=== PATIENT | female | born 1980 | race Caucasian/White ===

== ENCOUNTER 2018-06-01 20:26 | Emergency (ER) | payer OTHER ==
--- NOTE | 2018-06-01 20:35 | PDOC ---
History of Present Illness - History of Present Illness Initial Comments: This is a 38 year old female, with a significant past medical history of asthma (Ventolin and Symbicort Inhaler) who presents to the emergency department today complaining of exacerbated asthma symptoms for 1 week, and vomiting for 2 days. Patient reports having a progressively worsening cough and an itchy throat. She notes that coughing is exacerbated with deep breaths. Patient reports that the coughing was worst the past two days, causing her to vomit clear flem which prompted her visit to the ED. Patient notes associated eye-tearing and runny nose. Patient reports going to Urgent Care last week, where she had negative X- Rays and was negative for the flu, but was told she had a sinus infection. Patient confirms sick contacts at home. Patient has been on 40mg of amoxicillin for 1 week. The patient denies chest pain, shortness of breath, headache and dizziness. Denies fever, chills, diarrhea and constipation. Denies dysuria, frequency, urgency and hematuria. PAST MEDICAL HISTORY: Asthma PAST SURGICAL HISTORY: no significant history FAMILY HISTORY: no pertinent history SOCIAL HISTORY: Pt lives with family and is employed. MEDICATIONS: reviewed ALLERGIES: As per nursing notes ROS General: No fevers or chills, no weakness, no weight loss HEENT: +Itchy throat. +Eye watering. +Runny nose. No change in vision. No ear pain CardioVascular: No chest pain or shortness of breath Respiratory: +Cough. No wheezing. Gastrointestinal: +Nausea. +Vomit. No diarrhea or constipation, No rectal bleeding Genitourinary: No dysuria, hematuria, or frequency Musculoskeletal: No joint or muscle pain or swelling Neurologic: No headache, vertigo, dizziness or loss of consciousness Psychiatric: no depression Skin: No rashes or easy bruising Endocrine: no increased thirst or abnormal weight change Allergic: no skin or latex allergy All other systems reviewed and normal Exam: General: Well-nourished well-developed individual, no acute distress. Speaking in full sentences. HEENT: Throat: Normal, tonsils normal, no erythema or exudate Neck: Supple, no meningeal signs, no lymphadenopathy Eyes::Pupils equal reactive and round, extraocular motion intact Chest: Nontender to palpation Cardiac: S1-S2 normal, regular rate and rhythm, no murmurs rubs or gallops Respiratory: +Coarse breath sounds at bilateral bases. No obvious respiratory distress. Normal respiratory rate. Good air entry bilaterally. No wheezing. No rhonchi or rales. Extremities: Warm, dry, no cyanosis, clubbing, or edema Skin: No rashes Neuro: Alert and oriented x3, nonfocal exam, grossly intact, normal gait Psych: Normal mood and affect 06/01/18 21:04 <Cesilia Armenta - Last Filed: 06/01/18 21:09> - General History Source: Patient Exam Limitations: No Limitations - History of Present Illness Initial Comments: A portion of this note was documented by scribe services under my direction. I have reviewed the details of the note, within reason, and agree with the documentation with the following case summary and management plan written by me. Patient treated in the ED. Nursing notes are reviewed and incorporated into the medical decision-making. Vital signs reviewed. Assessment and plan: This is a 38-year-old female who comes in complaining of cough congestion and some posttussive emesis. Patient said she had a moderate amount of posttussive emesis that consisted totally of phlegm. Patient said since then she has actually felt better and had less coughing. Patient was at her primary care doctor and started on prednisone patient also takes a nebulizer for her asthma as well as Symbicort. Patient is also on antihistamines. Patient denies any chest pain, fever patient did have a chest x-ray approximately a week ago when she saw her primary care doctor and was told it was normal on my exam patient did have some coarse breath sounds so I did do a chest x-ray which was negative for any acute pathology Patient discharged home with a prescription for Tessalon Perles will follow up with her primary care doctor 06/01/18 21:12 <Stephen Fong I - Last Filed: 06/01/18 21:13> - General Chief Complaint: Asthma Stated Complaint: ASTHMA,COUGH Time Seen by Provider: 06/01/18 20:28 Past History <Cesilia Armenta - Last Filed: 06/01/18 21:09> - Past Medical History Asthma: Yes Diabetes: Yes (NO MEDS) Disorders: Yes (OVARIAN CYSTS, RETROGRADE UTERUS) - Suicide/Smoking/Psychosocial Hx Smoking History: Never smoked Hx Alcohol Use: No Substance Use Type: None <Stephen Fong I - Last Filed: 06/01/18 21:13> - Past Medical History Allergies/Adverse Reactions: Allergies Allergy/AdvReac Type Severity Reaction Status Date / Time morphine Allergy Severe Difficulty Verified 06/01/18 20:30 Breathing oxytocin [From Pitocin] Allergy Severe Swelling Verified 06/01/18 20:30 Home Medications: Ambulatory Orders Albuterol 0.083% Nebulizer Micheline [Ventolin 0.083%] 1 neb NEB QID 06/01/18 Benzonatate [Tessalon Pearls -] 200 mg PO TID #21 cap 06/01/18 Budesonide/Formeterol Fumarate [SYMBICORT 80/4.5mcg -] 1 inh PO BID 06/01/18 Fexofenadine HCl [Payal Allergy] 180 mg PO DAILY 06/01/18 Fluticasone Prop 0.05% Nasal [Flonase -] 1 - 2 spray NS DAILY 06/01/18 Montelukast Sodium [Singulair] 20 mg PO DAILY 06/01/18 Prednisone [Deltasone] 40 mg PO DAILY 06/01/18 *Physical Exam - Vital Signs Last Vital Signs Temp Pulse Resp BP Pulse Ox 98 F 106 H 20 138/95 100 06/01/18 20:33 06/01/18 20:33 06/01/18 20:33 06/01/18 20:33 06/01/18 20:33 <Cesilia Armenta - Last Filed: 06/01/18 21:09> Moderate Sedation - Procedure Monitoring Vital Signs: Procedure Monitoring Vital Signs Temperature 98 F 06/01/18 20:33 Pulse Rate 106 H 06/01/18 20:33 Respiratory Rate 20 06/01/18 20:33 Blood Pressure 138/95 06/01/18 20:33 O2 Sat by Pulse Oximetry (%) 100 06/01/18 20:33 <Cesilia Armenta - Last Filed: 06/01/18 21:09> *DC/Admit/Observation/Transfer - Attestations Scribe Attestion: 06/01/18 21:09 Documentation prepared by ANASTACIA Serna, acting as medical pathologist for Stephen Fong MD. <Cesilia Armenta - Last Filed: 06/01/18 21:09> - Discharge Dispostion Decision to Admit order: No <Stephen Fong I - Last Filed: 06/01/18 21:13> Diagnosis at time of Disposition: Persistent cough - Discharge Dispostion Disposition: HOME Condition at time of disposition: Stable - Prescriptions Prescriptions: Benzonatate [Tessalon Pearls -] 200 mg PO TID #21 cap - Patient Instructions Additional Instructions: Continue all of your medications as prescribed including your nebulizer treatments and inhalers. I sent a prescription to your pharmacy for a cough medication get the prescription filled you can take it 3 times a day do not bite or chew the medication hasn't well normal. Mouth's swallow a whole. Return to the emergency department immediately with ANY new, persistent or worsening symptoms. Continue any medications as previously prescribed by your physician. You should follow up with your primary doctor as soon as possible regarding today's emergency department visit. . Please make sure your doctor reviews the results of your emergency evaluation. Thank you for coming to the Emergency Department today for your care. It was a pleasure to see you today. Please note that your evaluation is INCOMPLETE until you follow-up with your doctor.
[2018-06-01 20:36] VITALS: BP 138/95; PULSE 106; TEMP 98; BMI 36.2
== END 2018-06-01 21:15 | disposition home or self-care (01) ==
LOC: FER 20:26
DX: R05 Cough (principal); J45.909 Unspecified asthma, uncomplicated
CPT/HCPCS: 71046-TC-FY; 99281-25

== ENCOUNTER 2021-12-10 07:00 | Day surgery (SDC) | payer OTHER ==
[2021-12-07 10:18] VITALS: BMI 38.4
[2021-12-10] MEDS ORDERED: ACETAMINOPHEN 325 MG TABLET (FP) PO PRN ×2 (09:14→10:00)
[2021-12-10] MEDS ORDERED: IBUPROFEN 400 MG TABLET (FP) PO PRN (09:20)
[2021-12-10] MEDS ORDERED: ONDANSETRON 4 MG/2 ML VIAL IVPUSH PRN (10:00)
[2021-12-10] MEDS ORDERED: PROMETHAZINE HCL 25 MG/1 ML VIAL IVPUSH PRN (10:00)
[2021-12-10] MEDS ORDERED: oxyCODONE HCL 5 MG TABLET PO PRN ×2 (10:00)
[2021-12-10 14:40] VITALS: BP 138/78; PULSE 70; TEMP 98.7
== END 2021-12-10 12:15 | disposition home or self-care (01) ==
LOC: JASU-SURG 07:00
PROVIDERS: ATTEND Obstetrics & Gynecology
PROC: 0UJD8ZZ Inspection of Uterus and Cervix, Via Natural or Artificial Opening Endoscopic (ICD-10-PCS; 2021-12-10)
PROC: 0UDB7ZZ Extraction of Endometrium, Via Natural or Artificial Opening (ICD-10-PCS; principal; 2021-12-10 09:00)
DX: N92.0 Excessive and frequent menstruation with regular cycle (principal); D25.0 Submucous leiomyoma of uterus
CPT/HCPCS: 81025; 88305-TC; 94760

== ENCOUNTER 2022-01-28 04:16 | Inpatient (IN) | payer OTHER ==
[2022-01-24 10:37] VITALS: BMI 38.0
[2022-01-28] MEDS ORDERED: MIDAZOLAM HCL 2 MG/2 ML SINGLE DOSE VIAL ONE ×3 (10:47→10:50)
[2022-01-28] MEDS ORDERED: ROCURONIUM BROMIDE 50 MG/5 ML SYRINGE ONE (10:49)
[2022-01-28] MEDS ORDERED: ceFAZolin SODIUM 1 GM VIAL ONE ×2 (10:50)
[2022-01-28] MEDS ORDERED: KETOROLAC TROMETHAMINE 30 MG/1 ML VIAL ONE (10:50)
[2022-01-28] MEDS ORDERED: LIDOCAINE HCL/PF 2% SDV 5ML VIAL ONE (10:50)
[2022-01-28] MEDS ORDERED: DEXAMETHASONE SOD PHOSPHATE 4 MG/1 ML VIAL ONE (10:50)
[2022-01-28] MEDS ORDERED: ONDANSETRON 4 MG/2 ML VIAL ONE (10:50)
[2022-01-28] MEDS ORDERED: BUPIVACAINE HCL/PF 0.5% (5MG/ML) 10 ML VIAL ONE (10:54)
[2022-01-28] MEDS ORDERED: BUPIVACAINE LIPOSOME/PF (EXPAREL) 266 MG/20 ML VIAL ONE (10:54)
[2022-01-28] MEDS ORDERED: ALBUTEROL SO4 HFA INHALER IH ONE (10:57)
[2022-01-28] MEDS ORDERED: methylPREDNISolone NA SUCC 125 MG/2 ML VIAL ONE (10:57)
[2022-01-28] MEDS ORDERED: ceFAZolin SODIUM 1 GM VIAL IVPB ONE (11:23)
[2022-01-28] MEDS ORDERED: HYDROmorphone HCl 2 MG/ML VIAL ONE ×2 (11:35→13:35)
[2022-01-28] MEDS: LACTATED RINGERS SOLUTION 1,000 ML IV SCH (13:44)
[2022-01-28] MEDS ORDERED: ALBUTEROL SO4 0.083% IH SOL 2.5 MG/3 ML VIAL.NEB. NEB ONE ×2 (13:53→14:52)
[2022-01-28] MEDS ORDERED: ACETAMINOPHEN 1000 MG/100 ML BAG IVPB ONE (14:11)
[2022-01-28] MEDS ORDERED: oxyCODONE HCL 5 MG TABLET PO PRN ×2 (14:11)
[2022-01-28] MEDS ORDERED: ALBUTEROL SO4 HFA INHALER IH PRN (14:53)
[2022-01-28] MEDS ORDERED: IBUPROFEN 800 MG/8 ML IJ IVPB PRN (17:37)
[2022-01-28] MEDS: oxyCODONE HCL 10 MG SUSTAINED ACTING TABLET PO SCH (22:42)
[2022-01-28] MEDS: ALBUTEROL SO4 0.083% IH SOL 2.5 MG/3 ML VIAL.NEB. NEB PRN (23:50)
[2022-01-29] MEDS: ACETAMINOPHEN 500 MG TABLET (FP) PO SCH ×4 (00:38→17:51)
[2022-01-29] MEDS: ALBUTEROL SO4 0.083% IH SOL 2.5 MG/3 ML VIAL.NEB. NEB PRN ×2 (04:00→09:19)
[2022-01-29] MEDS ORDERED: BUDESONIDE/FORMETEROL FUMARATE 160/4.5 mcg INHALER IH ONE (08:51)
[2022-01-29] MEDS ORDERED: MONTELUKAST NA 10 MG TABLET PO ONE (08:51)
[2022-01-29 09:09] LABS: HEMOGLOBIN 10.5 GM/dL (10.7-15.3); MCH 27.4 pg (25.7-33.7); MCHC 32.9 g/dl (32.0-36.0); MEAN CELL VOLUME 83.1 fl (80-96); PLATELET COUNT 303 10^3/uL (134-434); RBC 3.85 M/mm3 (3.60-5.2); RDW 15.1 % (11.6-15.6)
[2022-01-29] MEDS: LACTATED RINGERS SOLUTION 1,000 ML IV SCH (09:10)
[2022-01-29 09:28] LABS: CREATININE 0.5 mg/dL (0.55-1.3)
[2022-01-29] MEDS: ENOXAPARIN NA (PORCINE) 40 MG/0.4 ML DISP.SYRIN SQ SCH (09:59)
[2022-01-29] MEDS: IBUPROFEN 600 MG TABLET (FP) PO SCH ×3 (10:01→20:47)
[2022-01-29] MEDS: oxyCODONE HCL 10 MG SUSTAINED ACTING TABLET PO SCH ×2 (11:35→21:53)
[2022-01-29] MEDS: HYDROCORTISONE SOD SUCCINATE 100 MG/2 ML VIAL IVPB SCH ×2 (14:42→21:54)
[2022-01-30] MEDS: ACETAMINOPHEN 500 MG TABLET (FP) PO SCH ×3 (00:14→14:04)
[2022-01-30] MEDS: IBUPROFEN 600 MG TABLET (FP) PO SCH ×2 (03:28→09:56)
[2022-01-30] MEDS: HYDROCORTISONE SOD SUCCINATE 100 MG/2 ML VIAL IVPB SCH (06:13)
[2022-01-30] MEDS: oxyCODONE HCL 10 MG SUSTAINED ACTING TABLET PO SCH (11:22)
[2022-01-30] MEDS: ENOXAPARIN NA (PORCINE) 40 MG/0.4 ML DISP.SYRIN SQ SCH (11:23)
[2022-01-30 12:26] VITALS: BP 110/71; PULSE 91; RESP 18; TEMP 98.2
== END 2022-01-30 13:20 | disposition home or self-care (01) | DRG 519 ==
LOC: J2C 04:16 → J3W 16:58
PROVIDERS: ADMIT Obstetrics & Gynecology; ATTEND Obstetrics & Gynecology
PROC: 0UT70ZZ Resection of Bilateral Fallopian Tubes, Open Approach (ICD-10-PCS; 2022-01-28)
PROC: 0UT90ZZ Resection of Uterus, Open Approach (ICD-10-PCS; principal; 2022-01-28 10:00)
DX: D25.9 Leiomyoma of uterus, unspecified (principal); N92.0 Excessive and frequent menstruation with regular cycle; J45.901 Unspecified asthma with (acute) exacerbation
CPT/HCPCS: 36415; 81025; 82565; 85027; 86850; 86900; 86901; 88302-TC; 88307-TC; 94010; 94640; 94760

== ENCOUNTER 2022-05-25 18:45 | Emergency (ER) | payer OTHER ==
[2022-05-25 19:19] VITALS: BP 130/92; PULSE 93; RESP 18; TEMP 98.8; BMI 38.7
[2022-05-25] MEDS ORDERED: DEXAMETHASONE LIQUID 0.5 MG/5 ML PO ONE (19:49)
[2022-05-25] MEDS ORDERED: ALBUTEROL SO4 2.5/IPRATROPIUM 0.5 INH SOL 3 ML VIAL.NEB. NEB ONE ×4 (19:49→21:52)
[2022-05-25] MEDS ORDERED: AZITHROMYCIN 500 MG TABLET PO ONE (19:50)
[2022-05-25] MEDS ORDERED: AZITHROMYCIN 500 MG TABLET ONE (19:53)
[2022-05-25] MEDS ORDERED: DEXAMETHASONE SOD PHOSPHATE 10 MG/1 ML VIAL ONE (19:54)
[2022-05-25] MEDS ORDERED: MAGNESIUM SULF 50% (8.12 MEQ/2 ML-1 GM VIAL) IVPB ONE (21:04)
[2022-05-25] MEDS ORDERED: SODIUM CHLORIDE 0.9% 500 ML INFUS.BAG IV ONE (21:04)
[2022-05-25] MEDS ORDERED: MAGNESIUM SULFATE IN WATER 2 GM/50 ML IVPB IVPB ONE (21:09)
[2022-05-25] MEDS ORDERED: BENZOCAINE/MENTH/CETYLPYRD CL 1 EACH LOZENGE MM PRN (22:19)
== END 2022-05-25 22:44 | disposition home or self-care (01) ==
LOC: FER 18:45
PROC: 3E0F7GC Introduction of Other Therapeutic Substance into Respiratory Tract, Via Natural or Artificial Opening (ICD-10-PCS; principal; 2022-05-25)
PROC: 3E0F7GC Introduction of Other Therapeutic Substance into Respiratory Tract, Via Natural or Artificial Opening (ICD-10-PCS; 2022-05-25)
PROC: 3E033GC Introduction of Other Therapeutic Substance into Peripheral Vein, Percutaneous Approach (ICD-10-PCS; 2022-05-25)
DX: J18.9 Pneumonia, unspecified organism (principal); B97.4 Respiratory syncytial virus as the cause of diseases classified elsewhere
CPT/HCPCS: 0241U-QW; 99284-25

== ENCOUNTER 2022-06-06 19:48 | Emergency (ER) | payer OTHER ==
[2022-06-06 20:00] VITALS: BP 142/90; PULSE 90; RESP 16; TEMP 99.1; BMI 38.7
[2022-06-06] MEDS ORDERED: methylPREDNISolone NA SUCC 125 MG/2 ML VIAL IVPB ONE (20:18)
[2022-06-06] MEDS ORDERED: methylPREDNISolone NA SUCC 125 MG/2 ML VIAL ONE (20:21)
[2022-06-06] MEDS ORDERED: ALBUTEROL SO4 2.5/IPRATROPIUM 0.5 INH SOL 3 ML VIAL.NEB. NEB ONE (20:21)
[2022-06-06] MEDS ORDERED: ALBUTEROL SO4 2.5/IPRATROPIUM 0.5 INH SOL 3 ML VIAL.NEB. NEB SCH (20:30)
== END 2022-06-06 21:09 | disposition home or self-care (01) ==
LOC: FER 19:48
PROC: 3E0F7GC Introduction of Other Therapeutic Substance into Respiratory Tract, Via Natural or Artificial Opening (ICD-10-PCS; principal; 2022-06-06)
PROC: 3E033GC Introduction of Other Therapeutic Substance into Peripheral Vein, Percutaneous Approach (ICD-10-PCS; 2022-06-06)
DX: R06.2 Wheezing (principal)
CPT/HCPCS: 99284-25

== ENCOUNTER 2023-01-01 18:25 | Emergency (ER) | payer BC, OTHER ==
[2023-01-01 18:44] VITALS: TEMP 99.2; BMI 38.7
[2023-01-01 20:07] LABS: HEMATOCRIT 41.9 % (32.4-45.2); HEMOGLOBIN 13.9 G/dL (10.7-15.3); MCHC 33.2 g/dl (32.0-36.0); MEAN CELL VOLUME 87.4 fl (80-96); MEAN PLT VOLUME 8.9 fl (7.5-11.1); PLATELET COUNT 312.9 10^3/uL (134-434); RBC 4.79 10^6/uL (3.60-5.2); RDW 14.1 % (11.6-15.6); WHITE BLOOD COUNT 10.9 10^3/uL (4.0-10.8)
[2023-01-01 20:10] LABS: PLATELET ESTIMATE ADEQUATE
[2023-01-01 20:19] LABS: EPITHELIAL CELLS FEW /hpf
[2023-01-01 20:29] LABS: ALBUMIN 4.1 g/dl (3.4-5.0); BILIRUBIN,TOTAL 0.2 mg/dl (0.2-1); CALCIUM 9.1 mg/dl (8.5-10.1); CREATININE 0.6 mg/dl (0.6-1.3); POTASSIUM 4.1 mmol/L (3.5-5.1); SGOT/AST 15.7 U/L (15-37); SGPT/ALT 17.2 U/L (7-52); TOT PROT 6.9 g/dl (6.4-8.2)
[2023-01-01 21:20] VITALS: BP 134/71; PULSE 79; RESP 20
== END 2023-01-02 00:25 | disposition home or self-care (01) ==
LOC: FER 18:25
PROC: 3E033GC Introduction of Other Therapeutic Substance into Peripheral Vein, Percutaneous Approach (ICD-10-PCS; principal; 2023-01-01)
DX: N83.201 Unspecified ovarian cyst, right side (principal); R35.0 Frequency of micturition; R10.31 Right lower quadrant pain; R14.0 Abdominal distension (gaseous)
CPT/HCPCS: 36415; 74177-TC; 80053; 81003; 81015; 85027; 87086; 99285-25; Q9967

== ENCOUNTER 2023-06-19 14:46 | Emergency (ER) | payer BC ==
[2023-06-19 15:03] VITALS: BP 127/76; PULSE 82; RESP 17; TEMP 98; BMI 38.7
[2023-06-19] MEDS ORDERED: ACETAMINOPHEN 1000 MG/100 ML BAG IVPB ONE (15:26)
[2023-06-19] MEDS ORDERED: ACETAMINOPHEN INJECTION 100 ML IVPB ONE (15:43)
[2023-06-19 15:52] LABS: HEMATOCRIT 42.9 % (32.4-45.2); HEMOGLOBIN 13.9 G/dL (10.7-15.3); MCH 28.1 pg (25.7-33.7); MCHC 32.3 g/dl (32.0-36.0); MEAN PLT VOLUME 9.1 fl (7.5-11.1); PLATELET COUNT 349.3 10^3/uL (134-434); RBC 4.93 10^6/uL (3.60-5.2); RDW 14.9 % (11.6-15.6); WHITE BLOOD COUNT 10.5 10^3/uL (4.0-10.8)
[2023-06-19 15:55] LABS: PLATELET ESTIMATE ADEQUATE
[2023-06-19 16:01] LABS: ALBUMIN 4.2 g/dl (3.4-5.0); BILIRUBIN,TOTAL 0.3 mg/dl (0.2-1); CALCIUM 9.4 mg/dl (8.5-10.1); CREATININE 0.6 mg/dl (0.6-1.3); POTASSIUM 4.3 mmol/L (3.5-5.1); TOT PROT 6.8 g/dl (6.4-8.2)
[2023-06-19] MEDS ORDERED: SODIUM CHLORIDE 0.9% 500 ML INFUS.BAG IV ONE (16:13)
== END 2023-06-19 19:29 | disposition home or self-care (01) ==
LOC: FER 14:46
PROC: 3E033NZ Introduction of Analgesics, Hypnotics, Sedatives into Peripheral Vein, Percutaneous Approach (ICD-10-PCS; principal; 2023-06-19)
DX: M54.50 Low back pain, unspecified (principal); N83.209 Unspecified ovarian cyst, unspecified side; R10.9 Unspecified abdominal pain; Z20.822 Contact with and (suspected) exposure to COVID-19
CPT/HCPCS: 0241U-QW; 36415; 71046-TC-FY; 74176-TC; 76830-TC; 80053; 81003; 83690; 85027; 86140; 87086; 93005; 99285-25